=== PATIENT | female | born 1980 | race Caucasian/White ===

== ENCOUNTER 2016-12-07 13:44 | Inpatient (IN) | payer MEDICAID ==
[~2016-12-07] VITALS: Ht 167.6 cm; Wt 63.6 kg
[2016-12-07 14:00] VITALS: Ht 167.6 cm; Wt 63.6 kg
[2016-12-07] MEDS ORDERED: LACTATED RINGER'S 1,000 ML IV SCH (14:02)
[2016-12-07] MEDS ORDERED: OXYTOCIN 30 UNITS/LR 500 ML IV PRN ×2 (14:30→21:30)
[2016-12-07] MEDS ORDERED: METHYLERGONOVINE 0.2 MG INJ IM PRN ×2 (14:30→21:30)
[2016-12-07] MEDS ORDERED: CARBOPROST 250 MCG INJ IM PRN ×2 (14:30→21:30)
[2016-12-07] MEDS ORDERED: OXYTOCIN 30 UNITS/LR 500 ML IV SCH (14:30)
[2016-12-07] MEDS ORDERED: MISOPROSTOL 200 MCG TAB PR PRN ×2 (14:30→21:30)
[2016-12-07] MEDS ORDERED: CEFAZOLIN 2 GM/50 ML (PMX) 50 ML IV SCH (14:30)
[2016-12-07 14:46] LABS: ADD SCAN DIFF NO
[2016-12-07 14:48] LABS: BASOPHIL # 0.1 10^3/ul (0.0-0.1); BASOPHILS % 0.4 % (0.0-2.0); EOSINOPHILS # 0.1 10^3/ul (0.0-0.5); EOSINOPHILS % 0.5 % (0.0-7.0); HEMATOCRIT 30.1 % (37.0-47.0); HEMOGLOBIN 10.1 g/dl (12.0-16.0); LYMPHOCYTES # 2.2 10^3/ul (0.8-2.9); LYMPHOCYTES % 15.7 % (15.0-51.0); MEAN CORPUSCULAR HEMOGLOBIN 28.1 pg (29.0-33.0); MEAN CORPUSCULAR HGB CONC 33.6 g/dl (32.0-37.0); MEAN CORPUSCULAR VOLUME 83.8 fl (82.0-101.0); MEAN PLATELET VOLUME 11.3 fl (7.4-10.4); MONOCYTE # 0.5 10^3/ul (0.3-0.9); MONOCYTES % 3.9 % (0.0-11.0); NEUTROPHIL # 10.9 10^3/ul (1.6-7.5); NEUTROPHILS % 78.8 % (39.0-77.0); PLATELET COUNT 210 10^3/UL (140-415); RED BLOOD COUNT 3.59 10^6/ul (4.20-5.40); RED CELL DISTRIBUTION WIDTH 12.8 % (11.5-14.5); WHITE BLOOD COUNT 13.8 10^3/ul (4.8-10.8)
[2016-12-07 15:03] LABS: INR 1.03; PARTIAL THROMBOPLASTIN TIME 24.7 Sec (25.0-35.0); PROTIME 13.5 Sec (12.2-14.2); PT RATIO 1.1
[2016-12-07] MEDS ORDERED: PRENAT PO (15:04)
[2016-12-07] MEDS ORDERED: CITRIC ACID/NA CITRATE 30 ML CUP ONE (15:15)
[2016-12-07] MEDS ORDERED: ONDANSETRON 4 MG INJ ONE (15:15)
[2016-12-07] MEDS ORDERED: ONDANSETRON 4 MG INJ IV STA (15:16)
[2016-12-07] MEDS ORDERED: CITRIC ACID/NA CITRATE 30 ML CUP PO ONE (15:30)
[2016-12-07] MEDS ORDERED: OXYTOCIN 10 UNIT INJ ONE ×2 (15:32→16:15)
[2016-12-07] MEDS ORDERED: morphine SULFATE/PF (10 MG/10 ML) INJ ONE (15:32)
[2016-12-07] MEDS ORDERED: PHENYLephrine (100 MCG/ML) 5ML SYG ONE (15:32)
[2016-12-07] MEDS ORDERED: DEXAMETHASONE 4 MG/ML 1 ML INJ ONE (16:11)
[2016-12-07] MEDS ORDERED: METOCLOPRAMIDE 10 MG INJ ONE (16:11)
[2016-12-07] MEDS ORDERED: KETOROLAC 30 MG INJ ONE (16:11)
[2016-12-07] MEDS ORDERED: FENTAnyl 50 MCG/ML VIAL ONE (16:16)
[2016-12-07] MEDS ORDERED: NALOXONE (0.4 MG/ML) INJ IV PRN (16:30)
[2016-12-07] MEDS ORDERED: morphine 4 MG/ML VIAL IV PRN (16:30)
[2016-12-07] MEDS ORDERED: ACETAMINOPHEN 500 MG TAB PO PRN (16:30)
[2016-12-07] MEDS ORDERED: HYDROCODONE/APAP (5/325) TAB PO PRN (16:30)
[2016-12-07] MEDS ORDERED: KETOROLAC 30 MG INJ IV PRN (16:30)
[2016-12-07] MEDS ORDERED: ONDANSETRON 4 MG INJ IV PRN (16:30)
[2016-12-07] MEDS ORDERED: DIPHENHYDRAMINE 50 MG INJ IV PRN (16:30)
[2016-12-07] MEDS ORDERED: HYDROmorphONE 1 MG/ML SYG IV PRN ×2 (16:30)
[2016-12-07] MEDS ORDERED: morphine 2 MG INJ IV PRN (16:30)
[2016-12-07] MEDS ORDERED: NALBUPHINE HCL (10 MG/1 ML) INJ IV PRN (16:30)
--- NOTE | 2016-12-07 16:58 | HP ---
Date/Time of Note Date/Time of Note DATE: 12/07/16 TIME: 16:50 OB - History Hx of Present Free Text/Dictation admitted for primary C/S per patient desire and per perinatologist who recommended delivery at this time because of positive anti K antibody Last Menstrual Period: Mar 16, 2016 Estimated Due Date: Dec 21, 2016 : 1 Para: 0 Care: Good Care Ultrasounds: Normal mid trimester US Obstetrical Complications: Other (positive antibidy screen ) Medical Complications: Other (crohn'disease) Past Family/Social History * Past Medical, Surgical, Family and Obstetric Histories reviewed from chart. Blood Type: AB+ Rubella: immune RPR/VDRL: Negative GBS Status: Unknown HBsAG: Negative OB Admission Exam Physical Exam HEENT: WNL Heart: Rhythm Normal Lungs: Clear, Equal Abdomen: WNL Extremities: Normal Reflexes: Normal Cervical Dilatation: None Effacement: 0% Station: -3 Membranes: Intact Heart Rate: 140's Accelerations: Accelerations Present Decelerations: No Decelerations Varibility: Marked Contractions on Admission: < 5 Minutes Apart Date/Time Contractions Began: ? Frequency of Contractions: ? Duration: ? Intensity: Mild Last 72 hours Lab Results CBC & BMP 12/07/16 14:15 OB Assessment/Plan Other Assessment: term gestation positive antibody screen desires delivery perinatologist recommended delivery Other plan: primary C/S DEZ CARVAJAL MD Dec 07, 2016 16:58
--- NOTE | 2016-12-07 17:00 | OPR ---
Operative Report Planned Procedure Procedure date Dec 07, 2016 Procedure(s) primary C/S Performed by: DEZ CARVAJAL MD Assisting provider: DEJA FARAH MD Anesthesiologist: KERRI SMITH MD Pre-procedure diagnosis term gestation desired C/S perinatologist recommended delivery Anesthesia Type: spinal Procedure Description Under satisfactory anaesthesia a Pfannenstiel incision was made two fingerbreadth above and parallel to the symphysis of pubis around the previous scar and previous scar was removed Incision was extended laterally to the border of the Recti muscles on either sides. Incision was carried down with sharp and blunt dissection until fascia was reached. Anterior Recti muscle fascia was incised in mid portion and incision extended laterally to the border of skin incision. Fascia was mobilized from muscle superiorly and Recti muscles were from midline using sharp and blunt dissection. Peritoneum was visualized; Avoiding bowel and bladder it was incised . Incision was extended superiorly and inferiorly. Bladder blade was placed. Posterior peritoneum covering the lower segment of the uterus and lower segment of the uterus were incised.Low transverse uteine incision was made on lower segment of the uterus. Incision extended laterally to the border of Round Lig. on either sides and baby was delivered from OT. position . Amniotic fluid appeared clear. Cord blood was obtained and cord had 3 vessels . Placenta was delivered spontaneously and appeared intact and complete. Intrauterine cavity was rubbed with a laparotomy sponge. Uterine incision was closed in 2 layers using running stitches of No1 Monocryl. Hemostasis appeared secure. Ovaries and Fallopian tubes were within normal limits. Announcing needle, lap sponge and instrument count to be correct abdomen was closed in layers as follows: Peritoneum and Recti muscles with running stitches of 20 Vicryl. Fascia with running stitch of No 1 PDS. Subcutaneous tissue with running stitches of 20 Chromic and skin was closed using marjorie. Patient tolerated the procedure well and was transferred to [facility] in good condition. Post-Procedure Post-procedure diagnosis S/P C/S Findings: Live Baby Specimen removed: No Complications: None Pt Condition post procedure: stable Disposition: PACU Physician Certification I, the undersigned physician, hereby certify that I have discussed the procedure described in this consent form with this patient (or the patient's legal traveling sales representative), including: * The risk and benefits of the procedure; * Any adverse reactions that may reasonably be expected to occur; * Any alternative efficacious methods of treatment which may be medically viable ; * The potential problems that may occur during recuperation; * Potential for blood transfusion and associated risks/benefits; and * Any research or economic interest I may have regarding this treatment. I further certify that the patient/legally responsible person was encouraged to ask question and that all questions were answered. DEZ CARVAJAL MD Dec 07, 2016 17:00
[2016-12-07 21:15] VITALS: BP 106/65; PULSE 55; RESP 18
[2016-12-07 21:30] VITALS: BP 109/63; PULSE 57; RESP 18
[2016-12-07] MEDS ORDERED: NA PHOSPHATE/BIPHOS 133 ML ENEMA PR PRN (21:30)
[2016-12-07] MEDS ORDERED: LANOLIN 7 GM TUBE TOP PRN (21:30)
[2016-12-07] MEDS ORDERED: ACETAMINOPHEN/CODEINE #3 TAB PO PRN (21:30)
[2016-12-07] MEDS ORDERED: OXYCODONE/ACETAMINOPHEN (5/325) TAB PO PRN (21:30)
[2016-12-07 21:45] VITALS: BP 103/61; PULSE 53; RESP 18
[2016-12-07] MEDS ORDERED: IBUPROFEN 800 MG TAB PO SCH (22:00)
[2016-12-07 22:15] VITALS: BP 105/68; PULSE 57; RESP 18
[2016-12-07] MEDS: LACTATED RINGER'S 1,000 ML IV SCH (22:23)
[2016-12-07 23:30] VITALS: BP 112/59; PULSE 60; RESP 18
[2016-12-07] MEDS: CEFAZOLIN 2 GM/50 ML (PMX) 50 ML IV SCH (23:50)
[2016-12-07] MEDS: CLINDAMYCIN 300 MG CAP PO SCH (23:51)
--- NOTE | 2016-12-08 02:52 | OPPN ---
Date/Time of Note Date/Time of Note DATE: 12/08/16 TIME: 02:51 Post-Anesthesia Notes Post-Anesthesia Note Last documented vital signs Vital Signs Date Time Temp Pulse Resp B/P Pulse Ox O2 Delivery O2 Flow Rate FiO2 12/07/16 23:30 98.0 60 18 112/59 Room Air Activity: WNL Respiratory function: WNL Cardiovascular function: WNL Mental status: Baseline Pain reasonably controlled: Yes Hydration appropriate: Yes Nausea/Vomiting absent: Yes KERRI SMITH MD Dec 08, 2016 02:51
[2016-12-08 04:45] VITALS: BP 95/56; PULSE 56; RESP 18
[2016-12-08] MEDS: LACTATED RINGER'S 1,000 ML IV SCH ×3 (06:22→21:02)
[2016-12-08] MEDS: CLINDAMYCIN 300 MG CAP PO SCH ×2 (06:22→12:49)
[2016-12-08 07:37] LABS: ADD SCAN DIFF NO
[2016-12-08 07:42] LABS: BASOPHILS % 0.1 % (0.0-2.0); EOSINOPHILS # 0.1 10^3/ul (0.0-0.5); EOSINOPHILS % 0.3 % (0.0-7.0); HEMOGLOBIN 9.6 g/dl (12.0-16.0); LYMPHOCYTES # 2.5 10^3/ul (0.8-2.9); LYMPHOCYTES % 11.8 % (15.0-51.0); MEAN CORPUSCULAR HEMOGLOBIN 28.1 pg (29.0-33.0); MEAN CORPUSCULAR HGB CONC 33.1 g/dl (32.0-37.0); MEAN CORPUSCULAR VOLUME 84.8 fl (82.0-101.0); MEAN PLATELET VOLUME 11.2 fl (7.4-10.4); MONOCYTE # 1.4 10^3/ul (0.3-0.9); MONOCYTES % 6.4 % (0.0-11.0); NEUTROPHIL # 17.3 10^3/ul (1.6-7.5); NEUTROPHILS % 80.7 % (39.0-77.0); PLATELET COUNT 212 10^3/UL (140-415); RED BLOOD COUNT 3.42 10^6/ul (4.20-5.40); RED CELL DISTRIBUTION WIDTH 12.8 % (11.5-14.5); WHITE BLOOD COUNT 21.4 10^3/ul (4.8-10.8)
[2016-12-08 08:00] VITALS: BP 99/63; PULSE 65; RESP 17
[2016-12-08] MEDS: CEFAZOLIN 2 GM/50 ML (PMX) 50 ML IV SCH ×2 (08:18→15:46)
[2016-12-08] MEDS: SENNA/DOCUSATE NA (8.6MG/50MG) TAB PO SCH ×2 (08:58→21:00)
[2016-12-08] MEDS ORDERED: CELECOXIB 200 MG CAP PO SCH (09:00)
[2016-12-08] MEDS ORDERED: BISACODYL 10 MG SUPP PR ONE (11:00)
[2016-12-08 12:00] VITALS: BP 93/59; PULSE 62; RESP 16
[2016-12-08] MEDS: IBUPROFEN 800 MG TAB PO SCH ×2 (14:00→21:17)
[2016-12-08 16:30] VITALS: BP 111/65; PULSE 67; RESP 17
--- NOTE | 2016-12-08 17:37 | PN ---
Date/Time of Note Date/Time of Note DATE: 12/08/16 TIME: 17:35 Assessment/Plan VTE Prophylaxis VTE Prophylaxis Intervention: ambulation Lines/Catheters IV Catheter Type (from Nrsg): Peripheral IV Assessment/Plan Assessment/Plan Status post Postop day 1 We will advance diet and ambulate Start on IV antibiotics for elevated white count Subjective 24 Hr Interval Summary No bowel movement Passing flatus Constitutional: BM, ambulates, flatus, improved, no complaints, urine output Pain Control: well controlled Exam/Review of Systems Vital Signs Vitals Vital Signs Date Time Temp Pulse Resp B/P Pulse Ox O2 Delivery O2 Flow Rate FiO2 12/08/16 16:30 98.4 67 17 111/65 Room Air 12/08/16 13:50 97 21 Intake and Output 12/07/16 12/07/16 12/08/16 15:00 23:00 07:00 Intake Total 2000 ml 980 ml Output Total 375 ml 450 ml Balance 1625 ml 530 ml Exam Free Text/Dictation Abdomen is soft and bowel sounds present Incision is covered Constitutional: alert, oriented, well developed Psych: nl mood/affect, no complaints Head: atraumatic, normocephalic Eyes: EOMI, nl conjunctiva, nl lids, nl sclera ENMT: mucosa pink and moist, nl external ears & nose, nl lips & teeth, nl nasal mucosa & septum Neck: non-tender, supple Respiratory: clear to auscultation, normal air movement Cardiovascular: nl pulses, regular rate and rhythm Gastrointestinal: nl liver, spleen, non-tender, soft Musculoskeletal: nl extremities to inspection, nl gait and stance Extremities: normal pulses Neurological: CARDIOVASCULAR PHYSICIAN ASSISTANT II-XII intact, nl mental status, nl speech, nl strength Skin: nl turgor, rash or lesions Lymph: nl lymph nodes Results Result Diagram: 12/08/16 0659 DEZ CARVAJAL MD Dec 08, 2016 17:36
[2016-12-08] MEDS: GENTAMICIN 80 MG/NS (PMX) 50 ML IVPB SCH (17:56)
[2016-12-08] MEDS: AMPICILLIN 2 GM/NS (PMX) 100 ML IVPB SCH ×2 (18:35→23:51)
[2016-12-08] MEDS: CLINDAMYCIN 900 MG/D5W (PMX) 50 ML IVPB SCH (19:54)
[2016-12-08 19:55] VITALS: BP 106/55; PULSE 68; RESP 18
[2016-12-09] MEDS: GENTAMICIN 80 MG/NS (PMX) 50 ML IVPB SCH ×3 (00:54→17:43)
[2016-12-09] MEDS: CLINDAMYCIN 900 MG/D5W (PMX) 50 ML IVPB SCH ×4 (01:24→19:56)
[2016-12-09 04:30] VITALS: BP 104/51; PULSE 60; RESP 18
[2016-12-09] MEDS: LACTATED RINGER'S 1,000 ML IV SCH ×3 (05:02→21:02)
[2016-12-09] MEDS: IBUPROFEN 800 MG TAB PO SCH ×3 (06:00→21:32)
[2016-12-09] MEDS: AMPICILLIN 2 GM/NS (PMX) 100 ML IVPB SCH ×4 (06:00→23:51)
[2016-12-09 07:40] VITALS: BP 110/66; PULSE 54; RESP 18
[2016-12-09 08:28] LABS: ADD SCAN DIFF NO
[2016-12-09 08:42] LABS: BASOPHIL # 0.1 10^3/ul (0.0-0.1); BASOPHILS % 0.4 % (0.0-2.0); EOSINOPHILS # 0.2 10^3/ul (0.0-0.5); EOSINOPHILS % 1.6 % (0.0-7.0); HEMATOCRIT 27.4 % (37.0-47.0); LYMPHOCYTES # 1.9 10^3/ul (0.8-2.9); LYMPHOCYTES % 14.6 % (15.0-51.0); MEAN CORPUSCULAR HEMOGLOBIN 28.2 pg (29.0-33.0); MEAN CORPUSCULAR HGB CONC 32.8 g/dl (32.0-37.0); MEAN CORPUSCULAR VOLUME 85.9 fl (82.0-101.0); MEAN PLATELET VOLUME 11.7 fl (7.4-10.4); MONOCYTES % 8.1 % (0.0-11.0); NEUTROPHIL # 9.6 10^3/ul (1.6-7.5); NEUTROPHILS % 74.7 % (39.0-77.0); PLATELET COUNT 215 10^3/UL (140-415); RED BLOOD COUNT 3.19 10^6/ul (4.20-5.40); RED CELL DISTRIBUTION WIDTH 12.7 % (11.5-14.5); WHITE BLOOD COUNT 12.8 10^3/ul (4.8-10.8)
[2016-12-09] MEDS: SENNA/DOCUSATE NA (8.6MG/50MG) TAB PO SCH ×2 (08:48→21:00)
[2016-12-09 16:00] VITALS: BP 108/64; PULSE 60; RESP 18
--- NOTE | 2016-12-09 16:16 | DS ---
Date/Time of Note Date/Time of Note Home next day DATE: 12/09/16 TIME: 16:14 Obstetrical Discharge Record Final Diagnosis Final Diagnosis: Term delivered Other Final Diagnosis Status post Section Section: Primary Primary Indication Elective Condition on Discharge Physical Assessment Last Vitals: See nurse's note Voiding: Yes Bowel Movement: Yes Breast: Soft, non-tender, Filling Fundus: Firm Abdomen and Incision: Soft bowel sounds positive Incision healing well Episiotomy: Not applicable Calf Tenderness: No Patient Condition: Good DEZ CARVAJAL MD Dec 09, 2016 16:15
--- NOTE | 2016-12-09 16:17 | DS ---
Date/Time of Note Date/Time of Note Home next DATE: 12/09/16 TIME: 16:16 Discharge Summary Admission/Discharge Info Admit Date/Time Dec 07, 2016 at 13:44 Discharge Date/Time December 10, 2006 Discharge Diagnosis Status post Patient Condition: Good Procedures Primary Hx of Present Illness 36-year-old female had primary Hospital Course Uncomplicated Home Meds Reported Medications Multivit/Min/Fol Ac/Iron/Pren* ( S*) 1 Tab Tab, 1 TAB PO DAILY, TAB 12/07/16 Follow-up Plan To 3 days in clinic for staple removal Primary Care Provider Care Physician No Primary Time spent on discharge: < 30 minutes Pending Labs Laboratory Tests Test 12/09/16 06:41 White Blood Count 12.810^3/ul (4.8-10.8) Red Blood Count 3.1910^6/ul (4.20-5.40) Hemoglobin 9.0g/dl (12.0-16.0) Hematocrit 27.4% (37.0-47.0) Mean Corpuscular Volume 85.9fl (82.0-101.0) Mean Corpuscular Hemoglobin 28.2pg (29.0-33.0) Mean Corpuscular Hemoglobin Concent 32.8g/dl (32.0-37.0) Red Cell Distribution Width 12.7% (11.5-14.5) Platelet Count 72301^3/UL (140-415) Mean Platelet Volume 11.7fl (7.4-10.4) Neutrophils % 74.7% (39.0-77.0) Lymphocytes % 14.6% (15.0-51.0) Monocytes % 8.1% (0.0-11.0) Eosinophils % 1.6% (0.0-7.0) Basophils % 0.4% (0.0-2.0) Nucleated Red Blood Cells % 0.0/100WBC (0.0-0.0) Neutrophils # 9.610^3/ul (1.6-7.5) Lymphocytes # 1.910^3/ul (0.8-2.9) Monocytes # 1.010^3/ul (0.3-0.9) Eosinophils # 0.210^3/ul (0.0-0.5) Basophils # 0.110^3/ul (0.0-0.1) Nucleated Red Blood Cells # 0.010^3/ul (0.0-0.0) Hepatitis B Surface Antigen NEGATIVE (NEGATIVE) DEZ CARVAJAL MD Dec 09, 2016 16:17
--- NOTE | 2016-12-09 16:18 | PD.PPDC ---
[employer] GRADE TEACHER Discharge Instruction Provider Information Physician Information 36-year-old female had primary Diagnosis Final Diagnosis: Status post Condition Patient Condition: Good Diet Diet: Resume Regular Diet Activity/Restrictions Activity: September Shower Restrictions: No Exercising No Lifting Nothing in the Vagina Return to Work or School: Feb 11, 2017 Wound/Drain Care Instructions Wound/Drain Care Instructions: Keep clean and dry Follow-up Follow-up with Physician: 2, 3, Day/Days (In clinic for staple removal) Return to clinic for MUTUAL FUND ANALYST Instructions: Fever greater than 101 Chills OB Instructions: Breast Tenderness Depression Surgical Instructions: Incisional Drainage Incisional Redness DEZ CARVAJAL MD Dec 09, 2016 16:18
[2016-12-09] MEDS ORDERED: Oxycodone/Acetamin (5/325) PO (16:19)
[2016-12-09] MEDS ORDERED: IBUP800T25 PO (16:19)
[2016-12-09 20:00] VITALS: BP 112/68; PULSE 61; RESP 18
[2016-12-10] MEDS: GENTAMICIN 80 MG/NS (PMX) 50 ML IVPB SCH (01:18)
[2016-12-10] MEDS: CLINDAMYCIN 900 MG/D5W (PMX) 50 ML IVPB SCH ×2 (02:03→08:24)
[2016-12-10] MEDS: LACTATED RINGER'S 1,000 ML IV SCH (05:02)
[2016-12-10] MEDS: AMPICILLIN 2 GM/NS (PMX) 100 ML IVPB SCH (05:37)
[2016-12-10] MEDS: IBUPROFEN 800 MG TAB PO SCH ×2 (05:38→14:00)
[2016-12-10 08:01] VITALS: BP 123/66; PULSE 50; RESP 18
[2016-12-10] MEDS: SENNA/DOCUSATE NA (8.6MG/50MG) TAB PO SCH (09:00)
[2016-12-10] MEDS ORDERED: MEASLES,MUMPS,RUBELLA VACCINE INJ SC* ONE (09:00)
[2016-12-10] MEDS ORDERED: DIPHTH/TET/ACEL PERTUSS (ADULT) 0.5 ML VIAL IM* ONE (09:00)
== END 2016-12-10 14:50 | disposition home or self-care (01) | DRG 766 ==
LOC: L-D 13:44 → PP1 21:08
PROVIDERS: ADMIT Obstetrics & Gynecology; ATTEND Obstetrics & Gynecology
PROC: 3E033VJ Introduction of Other Hormone into Peripheral Vein, Percutaneous Approach (ICD-10-PCS; 2016-12-07)
PROC: 10D00Z1 Extraction of Products of Conception, Low, Open Approach (ICD-10-PCS; principal; 2016-12-07 15:30)
DX: O99.62 Diseases of the digestive system complicating childbirth (principal); Z37.0 Single live birth; Z3A.39 39 weeks gestation of pregnancy
CPT/HCPCS: 85025; 85610; 85730; 86592; 86850; 86870; 86900; 86901; 86902; 87340; 90715; 94760; 99464; J0290; J0690; J1100; J1580; J1885; J2274; J2370; J2405; J2590; J2765; J3010; J7120